=== PATIENT | female | born 1950 | race Caucasian/White ===

== ENCOUNTER 2020-03-04 15:45 | Outpatient (CLI) | payer BC, SELFPAY ==
--- NOTE | ~2020-03-04 | MM_ITS ---
EXAMINATION: MM screening [facility]io BI w vladimir HISTORY: Screening mammogram TECHNIQUE: Craniocaudal and mediolateral oblique 3-D tomosynthesis images were obtained and synthetic 2-D images were generated. CAD analysis was submitted and interpreted. COMPARISON: 02/11/2019, 01/22/2018, 01/15/2017. BREAST PARENCHYMAL COMPOSITION: FINDINGS: There is no evidence of suspicious mass, calcification, or architectural distortion to sugg est malignancy in either breast. There has been no suspicious interval change. IMPRESSION: 1. No mammographic evidence of malignancy. 2. Recommend routine screening mammography in one year. BI-RADS Category 1: Negative Reviewed, dictated and finalized at location B. 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
== END 2020-03-04 15:46 | disposition home or self-care (01) ==
PROVIDERS: PCP Internal Medicine; Visit Provider Obstetrics & Gynecology
DX: Z12.31 Encounter for screening mammogram for malignant neoplasm of breast (principal)
CPT/HCPCS: 77063; 77067

== ENCOUNTER 2020-04-02 12:42 | Outpatient (CLI) | payer BC, SELFPAY ==
--- NOTE | ~2020-04-02 | DEXA_ITS ---
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 Exam Date: April 02, 2020 Accession number: [id number] Bone Density: Region BMD T-score Z-score Classification AP Spine (L1, L2, L4) 0.953 -0.7 1.3 Normal Femoral Neck (Left) 0.673 -1.6 0.2 Osteopenia Total Hip (Left) 0.925 -0.1 1.4 Normal Total Hip Bilateral Avg 0.925 -0.1 1.4 Normal Femoral Neck (Right) 0.639 -1.9 -0.1 Osteopenia Total Hip (Right) 0.924 -0.1 1.3 Normal World Health Organization criteria for BMD impression classify patients as: Normal (T-score at or above -1.0), Osteopenia (T-score between -1.0 and -2.5), or Osteoporosis (T-score at or below -2.5). 10-year Fracture Risk(1): Major Osteoporotic Fracture 11% Hip Fracture 1.8% Reported Risk Factors: [place] (), Neck BMD=0.639, BMI=30.5 (1) FRAX(R) Version 3.08. Fracture probability calculated for an untreated patient. Fracture probability may be lower if the patient has received treatment. Clinical Information Provided by Patient: Has the following medical conditions: Hysterectomy Patient maximum height was 64 Menopause Age: 40 Drinks caffeinated beverages Onset of menses at age 13 Number of children 1 Impression: The patient has low bone mass, based on the Right Femoral Neck T-score. The patient has an estimated ten-year risk of hip fracture of 1.8% and an estimated ten-year risk of major fracture of 11%, based on the WHO FRAX algorithm. Discussion: BONE DENSITY IS LOW AT ONE OR MORE SKELETAL SITES. This patient's lowest T-score is low at one or more skeletal sites. It meets the World Health Organization's (WHO) criteria for ?low bone mass? (T-score between -1.0 and -2.5). The patient's 10-year risk of fracture as calculated by FRAX is less than the threshold where pharmacological therapy is recommended by the National Osteoporosis Foundation (NOF). However, all treatment decisions require clinical judgment and consideration of individual patient factors, including patient preferences, comorbidities, previous drug use, risk factors not captured in the FRAX model (e.g., frailty, falls, vitamin D deficiency, increased bone turnover, interval significant decline in bone density) and possible under or overestimation of fracture risk by FRAX. The patient should follow a healthful lifestyle (good nutrition with adequate calcium and vitamin D, and appropriate weight-bearing exercise). Follow-Up: Consider repeating this study in 2 to 3 years to reassess this patient's status, or sooner if there is some new clinical indication. Reported by: [facility] on 04/02/2020 1:06:00 PM.
== END 2020-04-02 12:43 | disposition home or self-care (01) ==
LOC: ANHIMG 12:43
PROVIDERS: PCP Internal Medicine; Visit Provider Internal Medicine
DX: Z78.0 Asymptomatic menopausal state (principal); M85.89 Other specified disorders of bone density and structure, multiple sites
CPT/HCPCS: 77080

== ENCOUNTER 2021-04-13 08:54 | Outpatient (CLI) | payer BC, SELFPAY ==
--- NOTE | ~2021-04-13 | MM_ITS ---
EXAMINATION: MM screening [facility] BI w vladimir HISTORY: Screening TECHNIQUE: Craniocaudal and mediolateral oblique 3-D tomosynthesis images were obtained and synthetic 2-D images were generated. CAD analysis was submitted and interpreted. COMPARISON: Comparison to multiple prior studies sequentially, with oldest reviewed study dated 12/27. BREAST PARENCHYMAL COMPOSITION: There are scattered areas of fibroglandular density. FINDINGS: There is no evidence of suspicious mass, calcification, or architectural distortion to sugg est malignancy in either breast. There has been no suspicious interval change. IMPRESSION: 1. No mammographic evidence of malignancy. 2. Recommend routine screening mammography in one year. BI-RADS Category 1: Negative Reviewed, dictated and finalized at location A. 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
== END 2021-04-13 08:55 | disposition home or self-care (01) ==
LOC: ANHIMG 08:56
PROVIDERS: PCP Internal Medicine; Visit Provider Obstetrics & Gynecology
DX: Z12.31 Encounter for screening mammogram for malignant neoplasm of breast (principal)
CPT/HCPCS: 77063; 77067

== ENCOUNTER 2021-10-12 13:19 | Emergency (ER) | payer BC, SELFPAY ==
--- NOTE | ~2021-10-12 | CT_ITS ---
EXAMINATION: CT abdomen pelvis wo con DATE: 10/12/2021 15:23 INDICATION: Left flank pain. TECHNIQUE: Computed tomography (CT) of the abdomen and pelvis was performed without intravenous contr ast. Automated exposure control and iterative reconstruction technique were employed. The dose-length product was 361.44 mGy-cm. COMPARISON: None. FINDINGS: The visualized portions of the lung bases demonstrate mild atelectasis. There are 3 mm and 4 mm nodules in right lower lobe and a 4 mm nodule in right middle lobe, likely benign. No pleural ef fusion. The heart size is normal. There are coronary artery calcifications. No pericardial effusion. There is a small sliding hiatal hernia. There is diffuse hepatic steatosis. There are changes of chol ecystectomy. The spleen, pancreas, and adrenal glands are normal. There is a 2 mm stone in right kidn ey. There is mild left hydronephrosis and hydroureter. There is a 3 mm stone at left ureterovesicular junction. There are no dilated loops of bowel. The appendix is normal. There are no pathologically e nlarged lymph nodes. There is no free intraperitoneal fluid. There is lumbar levoscoliosis and severe thoracic and lumbar spondylosis. There are chronic bilateral L5 pars defects. There is 8 mm anteroli sthesis of L5 on S1. IMPRESSION: 1. 3 mm stone at left ureterovesicular junction with mild left hydronephrosis and hydroureter. 2. 2 mm nonobstructing right kidney stone. Reviewed, dictated and finalized at location A. IMPRESSION: 1. 3 mm stone at left ureterovesicular junction with mild left hydronephrosis a nd hydroureter. 2. 2 mm nonobstructing right kidney stone.
[2021-10-12 13:29] VITALS: BP 166/94; PULSE 87; RESP 14; TEMP 36.7; O2SAT 99
[2021-10-12 13:36] LABS: Basophils Percent Auto 0.4 % (0.2-1.2); Eosinophils Absolute Auto 0.1 K/mm3 (0-0.3); Eosinophils Percent Auto 0.5 % (0-4.4); Hematocrit 44.4 % (37.0-47.0); Hemoglobin 14.4 g/dL (12.0-15.0); Immature Granulocyte Absolute 0.02 K/mm3 (0.00-0.031); Immature Granulocyte Percent A 0.2 % (0-0.5); Lymphocytes Absolute Auto 1.57 K/mm3 (0.9-3.2); Mean Corpuscular HGB Conc 32.4 g/dl (32-36); Mean Corpuscular Hemoglobin 29.6 pg (26-34); Mean Corpuscular Volume 91.2 fl (80-100); Mean Platelet Volume 10.2 fl (7.4-10.4); Monocytes Absolute Auto 0.7 K/mm3 (0.1-0.6); Monocytes Percent Auto 7.5 % (2.6-8.5); Neutrophils Absolute Auto 6.9 K/mm3 (1.3-6.7); Neutrophils Percent Auto 74.4 % (45.5-73.1); Platelet Count Result 257 k/mm3 (150-375); Red Blood Count 4.87 M/mm3 (4.2-5.4); Red Cell Distribution Width 12.5 % (11.5-14.5); White Blood Count 9.3 K/mm3 (4.5-10.0)
[2021-10-12 13:37] LABS: Appearance Urine Clear (Clear); Bilirubin Urine Negative (Negative); Blood Urine 1+ (Negative); Color Urine Yellow (Yellow); Glucose Urine UA Trace mg/dL (Negative); Ketones Urine Negative (Negative); Leukocyte Esterase Ur Negative LEU/UL (Negative); Nitrate Urine Negative (Negative); Protein Urine 1+ mg/dL (Negative); Specific Grav Ur >= 1.030 (1.001-1.035); Urobilinogen Urine 0.2 mg/dL (<2.0); pH Urine 5.5 (5.0-9.0)
[2021-10-12 13:44] LABS: Bacteria Urine Trace /hpf; Calcium Phosphate Crystals Ur Present /hpf; Mucus Urine Rare /lpf; Squamous Epithelial Cell Urine Many /hpf (Few); WBC Urine 0-3 /hpf
[2021-10-12 13:45] LABS: Alanine Aminotransferase 40 U/L (6-35); Albumin Level 4.8 g/dL (3.5-5.1); Alkaline Phosphatase 104 U/L (38-126); Anion Gap 11 mmol/L (8-16); Aspartate Amino Transferase 33 U/L (14-36); Bilirubin,Total 0.5 mg/dL (0.2-1.3); Blood Urea Nitrogen 20 mg/dL (7-17); Calcium 9.8 mg/dL (8.4-10.2); Carbon Dioxide 24 mmol/L (22-30); Chloride 98 mmol/L (98-107); Estimated CRCL calculation 39 ml/min; Estimated Glomerular Filt Rate 44; Glucose 199 mg/dL (65-110); Potassium 4.2 mmol/L (3.4-5.0); Sodium 133 mmol/L (137-145)
[2021-10-12 13:52] LABS: Add Urine Microscopic? YES
[2021-10-12 14:37] VITALS: BP 170/92; PULSE 86; RESP 16; O2SAT 98
[2021-10-12 14:47] VITALS: O2SAT 99
--- NOTE | 2021-10-12 14:53 | ED.BACK ---
HPI - Back Pain/Injury General Chief Complaint: Abdominal Pain Stated Complaint: left flank pain Time Seen by Provider: 10/12/21 14:44 History of Present Illness HPI Narrative: 71-year-old female with remote history of kidney stones presents because she had sudden onset severe pain in her left flank radiating to her groin, with some trouble urinating, initially thought it might be a UTI but feels different from this, no fevers or chills. Related Data Home Medications Medication Instructions Recorded Confirmed calcium carbonate 600 mg-vitamin 1 tablet PO DAILY 07/11/19 07/16/20 D3 20 mcg (800 unit) chewable tablet (Caltrate 600 plus D) meclizine 25 mg tablet 25 mg PO TID PRN Dizziness 07/15/19 07/16/20 Allergies Allergy/AdvReac Type Severity Reaction Status Date / Time Sulfa (Sulfonamide Allergy Unknown Hives Verified 10/12/21 13:31 Antibiotics) Review of Systems Review of Systems: CONST: No fever. HEENT: No sore throat C/V: No chest pain RESP: No cough GI: Reports abdominal pain, nausea, vomiting : No dysuria. M/S: No joint pain. SKIN: No rash. NEURO: [No headache or focal numbness or weakness] PSYCH: [No depression] [facility] Family History Family History Father Hypertension Family history of diabetes mellitus in first degree relative Diabetes mellitus Mother Family history of lupus erythematosus Other Cerebrovascular accident Family history of cardiovascular disease Social History Social History Alcohol intake: current Exam Narrative: EXAMINATION OF ORGAN SYSTEMS/BODY AREAS: Constitutional: Vital signs per nursing GENERAL: Appears uncomfortable in bed HEAD: Normal with no signs of head trauma. EYES: EOMI, conjunctiva normal ENT: Hearing grossly intact LUNGS: Nonlabored breathing. HEART: [Regular rate and rhythm] ABD: [Soft], slight tenderness palpation of the left flank EXT: Normal range of motion SKIN: [No rashes or lesions.] NEURO: [Alert and oriented x 3. No gross focal sensory or strength deficits.] PSYCH: Normal affect Course Vital Signs Vital signs: Vital Signs Temperature 98.1 F 10/12/21 13:29 Pulse Rate 87 10/12/21 13:29 Respiratory Rate 14 10/12/21 13:29 Blood Pressure 166/94 H 10/12/21 13:29 Pulse Oximetry 99 10/12/21 13:29 Oxygen Delivery Room Air 10/12/21 13:29 Temperature 98.1 F 10/12/21 13:29 Pulse Rate 87 10/12/21 15:30 Respiratory Rate 16 10/12/21 15:30 Blood Pressure 142/86 H 10/12/21 15:30 Pulse Oximetry 95 10/12/21 15:30 Oxygen Delivery Room Air 10/12/21 13:29 MDM - Back Pain/Injury MDM Narrative Medical decision making narrative: ED COURSE AND MEDICAL DECISION MAKIN-year-old female presenting to the emergency department for acute flank pain, symptoms are concerning for likely renal colic versus pyelonephritis. Urinalysis is ordered. [Morphine 4 mg, Zofran 4mg] are ordered. CT scan of the abdomen/pelvis is ordered. Labs are remarkable for: RBCs in UA, not c/w UTI. CT scan of the abdomen/pelvis is reviewed by myself and interpreted by radiology: 3mm stone L UVJ. On reevaluation, the patient's symptoms have resolved; she would like to go home at this time and will follow up with urology. Patient is strongly advised to return to the emergency department for any increasing pain not improving with medications, persistent nausea vomiting, fevers or chills or for any other concerns. Patient is comfortable with this plan and was discharged in fair condition. Procedures: Pulse oximetry interpretation - not hypoxic. Review of medical records. Lab Data Result diagrams: 10/12/21 13:29 10/12/21 13:29 Labs: Lab Results 10/12/21 10/12/21 10/12/21 Range/Units 13:29 13:29 13:29 WBC 9.3 (4.5-10.0) K/mm3 RBC 4.87 (4.2-5.4) M/mm3 Hgb 14.4 (12.0-15.0) g/dL
[2021-10-12 15:01] VITALS: O2SAT 99
[2021-10-12] MEDS: ONDANSETRON INJ 4 MG/2 ML VIAL IV PUSH (15:01)
[2021-10-12] MEDS: MORPHINE SULFATE (*CRX) 4 MG/ML INJ IV PUSH (15:01)
[2021-10-12 15:15] VITALS: O2SAT 97
[2021-10-12 15:30] VITALS: BP 142/86; PULSE 87; RESP 16; O2SAT 95
== END 2021-10-12 16:23 | disposition home or self-care (01) ==
PROVIDERS: Emergency Provider Emergency Medicine; PCP Internal Medicine
DX: N13.2 Hydronephrosis with renal and ureteral calculous obstruction (principal); Z87.442 Personal history of urinary calculi
CPT/HCPCS: 36415; 74176; 80053; 81001; 85025; 96374; 96375; 99284; J2270; J2405

== ENCOUNTER 2021-10-17 10:24 | Outpatient (CLI) | payer BC, SELFPAY ==
--- NOTE | ~2021-10-17 | XR_ITS ---
EXAMINATION: XR abdomen/kub 1V DATE: 10/17/2021 10:46 INDICATION: Left ureteral stone. TECHNIQUE: A supine view of the abdomen on 2 radiographs was obtained. COMPARISON: CT abdomen and pelvis 10/12/2021 FINDINGS: There are no dilated loops of bowel. Surgical clips in the right upper quadrant are likely from cholecystectomy. There is no visible urolithiasis. IMPRESSION: 1. No visible urolithiasis. Reviewed, dictated and finalized at location A. IMPRESSION: 1. No visible urolithiasis.
== END 2021-10-17 10:25 | disposition home or self-care (01) ==
PROVIDERS: PCP Internal Medicine; Visit Provider Urology
DX: N20.1 Calculus of ureter (principal)
CPT/HCPCS: 74018

== ENCOUNTER 2022-08-21 07:05 | Outpatient (CLI) | payer BC, SELFPAY ==
--- NOTE | ~2022-08-21 | MM_ITS ---
EXAMINATION: MM screening celio BI w vladimir HISTORY: Screening mammogram TECHNIQUE: Craniocaudal and mediolateral oblique 3-D tomosynthesis images were obtained and synthetic 2-D images were generated. CAD analysis was submitted and interpreted. COMPARISON: April 13, 2021, March 04, 2020, February 11, 2019, January 22, 2018 bilateral screen ing mammogram examinations BREAST PARENCHYMAL COMPOSITION: There are scattered areas of fibroglandular density. FINDINGS: Stable fibroglandular asymmetry. Possible new 7.5 mm circumscribed opacity at mid to assistant media planner ior depth in the central right breast (craniocaudal Tomosynthesis image 34/65). Otherwise no suspicious mass, architectural distortion, malignant calcification, skin thickening or r etraction or significant change since 01/22/2018 is noted. IMPRESSION: 1. 7.5 mm circumscribed mass in central right breast 2. Diagnostic right mammogram and right breast ultrasound examination are recommended. BI-RADS Category 0: Incomplete: Needs additional imaging evaluation. Reviewed, dictated and finalized at location A. IMPRESSION: 1. 7.5 mm circumscribed mass in central right breast 2. Diagnostic right mammogram and right breast ultrasound examination are recom mended. BI-RADS Category 0: Incomplete: Needs additional imaging evaluation.
== END 2022-08-21 07:06 | disposition home or self-care (01) ==
LOC: ANHIMG 07:07
PROVIDERS: PCP Internal Medicine; Visit Provider Obstetrics & Gynecology
DX: Z12.31 Encounter for screening mammogram for malignant neoplasm of breast (principal); N63.41 Unspecified lump in right breast, subareolar
CPT/HCPCS: 77063; 77067

== ENCOUNTER 2022-09-25 12:11 | Outpatient (CLI) | payer BC, SELFPAY ==
--- NOTE | ~2022-09-25 | MMUS_ITS ---
EXAMINATION: MM diagnostic celio RT w vladimir, US breast RT complete HISTORY: 7.5 mm circumscribed mass suggested in the central right breast on 08/21/2022 screening mammo gram TECHNIQUE: Additional 3-D tomosynthesis images of the right breast were performed and synthetic 2-D i mages were generated. CAD analysis was submitted and interpreted. High resolution complete right [facility] [facility] ultrasound examination: All 4 quadrants and subareolar area was performed. COMPARISON: 08/21/2022 bilateral screening mammogram FINDINGS: MAMMOGRAPHIC FINDINGS: The previously suggested Ezra 5 mm circumscribed opacity at mid to posterior depth in the central right breast on 08/21/2022 craniocaudal view is reproduced on the current examination. No suspicious mass or architectural distortion, microcalcifications, skin thickening or retraction is evident. ULTRASOUND: No suspicious mass or shadowing, cyst or other significant sonographic abnormality of the right breas t is detected. IMPRESSION: 1. No mammographic or sonographic evidence of malignancy of the right breast 2. Routine annual mammographic screening is recommended BI-RADS Category 1: Negative Reviewed, dictated and finalized at location A. IMPRESSION: 1. No mammographic or sonographic evidence of malignancy of the right breast 2. Routine annual mammographic screening is recommended BI-RADS Category 1: Negative
== END 2022-09-25 12:12 | disposition home or self-care (01) ==
LOC: ANHIMG 12:12
PROVIDERS: PCP Internal Medicine; Visit Provider Obstetrics & Gynecology
DX: R92.8 Other abnormal and inconclusive findings on diagnostic imaging of breast (principal)
CPT/HCPCS: 76641; 77061; 77065; G0279

== ENCOUNTER 2023-11-21 14:11 | Outpatient (CLI) | payer BC, SELFPAY ==
--- NOTE | ~2023-11-21 | MM_ITS ---
EXAMINATION: MM screening celio BI w vladimir HISTORY: Screening TECHNIQUE: Craniocaudal and mediolateral oblique 3-D tomosynthesis images were obtained and synthetic 2-D images were generated. CAD analysis was submitted and interpreted. COMPARISON: Comparison to multiple prior studies sequentially, with oldest reviewed study dated 12/28. BREAST PARENCHYMAL COMPOSITION: Dense: The breasts are heterogeneously dense, which may obscure small masses FINDINGS: There is no evidence of suspicious mass, calcification, or architectural distortion to sugg est malignancy in either breast. There has been no suspicious interval change. IMPRESSION: 1. No mammographic evidence of malignancy. 2. Recommend routine screening mammography in one year. BI-RADS Category 1: Negative Reviewed, dictated and finalized at location B.
== END 2023-11-21 14:12 | disposition home or self-care (01) ==
LOC: ANHIMG 14:13
PROVIDERS: PCP Family Medicine; Visit Provider Obstetrics & Gynecology
DX: Z12.31 Encounter for screening mammogram for malignant neoplasm of breast (principal)
CPT/HCPCS: 77063; 77067

== ENCOUNTER 2024-08-21 08:35 | Outpatient (CLI) | payer BC, SELFPAY ==
--- NOTE | ~2024-08-21 | CT_ITS ---
EXAM: CT brain wo con - 08/21/2024 8:46 CDT History: 74 years old Female with R25.1 - TremorS X 4 MONTHS AND CONSTANT TONGUE MOVEMENT COMPARISON: None available. PROCEDURE: CT of the head without contrast. Axial, sagittal and coronal reformatted planes were valerie luated. Automatic exposure control was used for this study. FINDINGS: BRAIN PARENCHYMA: No acute hemorrhage. No mass effect or herniation. [place]ctezuma-white matter differentiatio n is maintained. Mild chronic volume loss. Scattered hypodensities in subcortical and periventricular white matter, likely representing chronic microvascular ischemic changes in this age group. Atherosc lerotic calcification of the intracranial vessels is noted. VENTRICLES/ EXTRA-AXIAL SPACES: No hydrocephalus or extra-axial fluid collection. EXTRACRANIAL STRUCTURES: No calvarial fracture. IMPRESSION: No evidence for acute intracranial hemorrhage or calvarial fracture. Reviewed, dictated and finalized at location A.
== END 2024-08-21 08:36 | disposition home or self-care (01) ==
PROVIDERS: PCP Family Medicine; Visit Provider Nurse Practitioner Family
DX: R25.1 Tremor, unspecified (principal)
CPT/HCPCS: 70450

== ENCOUNTER 2024-12-19 09:30 | Outpatient (CLI) | payer BC, SELFPAY ==
--- NOTE | ~2024-12-19 | MM_ITS ---
EXAMINATION: MM screening celio BI w vladimir HISTORY: Screening TECHNIQUE: Craniocaudal and mediolateral oblique 3-D tomosynthesis images were obtained and synthetic 2-D images were generated. CAD analysis was submitted and interpreted. COMPARISON: Comparison to multiple prior studies sequentially, with oldest reviewed study dated , 01/22/2018 BREAST PARENCHYMAL COMPOSITION: The breasts are heterogeneously dense, which may obscure small masses. FINDINGS: There is no evidence of suspicious mass, calcification, or architectural distortion to suggest malignancy in either breast. IMPRESSION: 1. No mammographic evidence of malignancy. 2. Recommend routine screening mammography in one year. BI-RADS Category 1: Negative Reviewed, dictated and finalized at location B.
--- OUTSIDE RECORDS SUMMARY | 2024-12-19 09:45 | XMS_ITS | Clinical Summary ---
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 Name Role Phone Antonio Sequeira MD Primary Care Provider [phone] Allergies Active Allergy Reactions Criticality Noted Date Comments Sulfa (Sulfonamide Antibiotics) Unknown 06/26 Medications ARIPiprazole (ABILIFY) 5 mg tablet Take 5 mg by mouth daily 07/01/2021 Active atorvastatin (LIPITOR) 10 mg tablet Take 10 mg by mouth daily 2021 Active citalopram (CeleXA) 20 mg tablet Take 20 mg by mouth daily 06/07/2021 Active estradioL (ESTRACE) 0.5 mg tablet Take 0.5 mg by mouth daily 04/06/2021 Active ibuprofen (ADVIL,MOTRIN) 600 mg tablet Take by mouth every 8 (eight) hours as needed 06/10/2021 Active irbesartan (AVAPRO) 150 mg tablet Take 150 mg by mouth daily 06/20/2021 Active Euthyrox 100 mcg tablet Take 100 mcg by mouth daily 07/01/2021 Active montelukast (SINGULAIR) 10 mg tablet 07/12/2021 Active metFORMIN XR (GLUCOPHAGE XR) 500 mg 24 hr tablet Take 500 mg by mouth daily 06/07/2021 Active tolterodine LA (DETROL LA) 4 mg 24 hr capsule Take 4 mg by mouth daily 06/17/2021 Active Active Problems Problem Noted Date Diagnosed Date Tardive dyskinesia 10/23/2024 Assessment & Plan (10/23/2024 7:36 PM CDT): She has history and exam consistent with tardive dyskinesia. The most likely etiology is exposure to aripiprazole. I counseled her that the most important step in treatment is to avoid dopamine blocking medications like aripiprazole in the future. I stressed the importance of longitudinal follow up. I counseled her that it is reasonable to continue valbenazine for now but that she may not need this medication long-term. It is reassuring that her mood is much better back on citalopram, and we should monitor mood while she is taking valbenazine. Plan as phrased to the patient and her : Continue Ingrezza (valbenazine) 80mg daily for now. Let's plan to re-evaluate in 1-2 months by Mumtaz. Avoid taking dopamine blocking medications like aripiprazole in the future. Citalopram is fine and I would recommend continuing this because it is helping your mood. Hyperreflexia 10/23/2024 Assessment & Plan (10/23/2024 7:37 PM CDT): She has mild hyperreflexia of unclear etiology. It is not clear if this is different from her baseline and does not seem to be causing any problems. 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 Encounters Date Type Department Care Team Description 10/23/2024 3:00 PM CDT Office Visit [facility] Medicine Movement Disorders [address] [place] [address] Omar Florez MD PhD Tardive dyskinesia (Primary Dx); Hyperreflexia from Last 3 Months Surgical History Surgery Date Site/Laterality Comments GALLBLADDER SURGERY HYSTERECTOMY Medical History Medical History Date Comments Anxiety Hypertension Kidney stone Thyroid disease Family History Medical History Relation Name Comments Diabetes Father Heart disease Father Stroke Father Diabetes Mother Hypertension Mother Relation Name Status Comments Father Mother Social History Tobacco Use Types Packs/Day Years Used Date Smoking Tobacco: Never Comments Unknown Sex and Gender Information Value Date Recorded Sex Assigned at Not on file 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 Gender Identity Not on file Sexual Orientation Not on file Obstetrics History Last Filed Vital Signs Vital Sign Reading Time Taken Comments Blood Pressure 129/75 10/23/2024 2:47 PM CDT Pulse 83 10/23/2024 2:47 PM CDT Temperature 36.9 C (98.4 F) 10/23/2024 2:47 PM CDT Respiratory Rate - - Oxygen Saturation - - Inhaled Oxygen Concentration - - Weight 79.3 kg (174 lb 14.4 oz) 10/23/2024 2:47 PM CDT Height 160 cm (5' 3) 10/23/2024 2:47 PM CDT Body Mass Index 30.98 10/23/2024 2:47 PM CDT Plan of Treatment Health Maintenance Due Date Last Done Comments Breast Cancer Screening-Mammogram 1950 Colon Cancer Screening-Colonoscopy 1950 Depression Screening 1950 Fall Risk Assessment 1950 Hepatitis C Screening 1950 Osteoporosis Screening-Bone Density Scan 1950 DTaP/Tdap/Td Vaccine (1 - Tdap) 1961 Hepatitis B Screening 1968 Pneumococcal vaccine 65+ (1 of 1 - PCV) 2000 Zoster Vaccine (1 of 2) 2000 Well Visit 65+ 2015 Influenza Vaccine (#1) 2024 02/26/2017, 2012 Insurance [facility] Care Teams Tool Adjuster Relationship Specialty Start Date End Date Antonio Sequeira MD [address] [place] [address] PCP - General Family Practice 10/13/24
== END 2024-12-19 09:31 | disposition home or self-care (01) ==
LOC: ANHFOHIMG 09:32
PROVIDERS: PCP Family Medicine; Visit Provider Obstetrics & Gynecology
DX: Z12.31 Encounter for screening mammogram for malignant neoplasm of breast (principal)
CPT/HCPCS: 77063; 77067